=== PATIENT | male | born 1995 | race African-American/Black ===

== ENCOUNTER 2019-11-22 15:41 | Emergency (ER) | payer OTHER, SELFPAY ==
[~2019-11-22] VITALS: Ht 188 cm; Wt 118.2 kg
[2019-11-22 15:56] VITALS: BP 136/69
[2019-11-22] MEDS ORDERED: LIDOCAINE W/EPINEPHRINE 1% 20ML VIAL SC ONE (16:00)
[2019-11-22] MEDS ORDERED: BOOSTRIX/ADACEL VACCINE (DIPHTH/PERTUSS/ACELL/TETANUS) 0.5ML SYR IM ONE (16:30)
== END 2019-11-22 16:36 | disposition home or self-care (01) ==
LOC: M ED 15:41 → EDBD 15:41 → M ED 16:36
DX: S41.111A Laceration without foreign body of right upper arm, initial encounter (principal); W26.0XXA Contact with knife, initial encounter; Y92.89 Other specified places as the place of occurrence of the external cause; Y93.E5 Activity, floor mopping and cleaning; Y99.8 Other external cause status; R29.6 Repeated falls